=== PATIENT | male | born 1950 | race Caucasian/White ===

== ENCOUNTER 2020-05-05 10:04 | Emergency (ER) | payer OTHER, MEDICARE | END 2020-05-05 14:47 | disposition home or self-care (01) | LOC: ER1 10:04 | DX: G25.81 Restless legs syndrome (principal); Z76.0 Encounter for issue of repeat prescription; J44.9 Chronic obstructive pulmonary disease, unspecified; I25.10 Atherosclerotic heart disease of native coronary artery without angina pectoris; I10 Essential (primary) hypertension; F17.210 Nicotine dependence, cigarettes, uncomplicated | CPT/HCPCS: 99283 ==